=== PATIENT | female | born 1950 | race American Indian/Alaskan Native ===

== ENCOUNTER 2016-05-04 08:44 | Outpatient (CLI) | payer BC ==
[2016-05-04 09:31] LABS: Alanine Aminotransferase 16 units/L (7-56); Albumin 4.4 g/dL (3.9-5); Albumin/Globulin Ratio 1.4 %; Alkaline Phosphatase 64 units/L (35-129); Anion Gap 18 mmol/L; Bilirubin,Total 0.5 mg/dL (0.1-1.2); Blood Urea Nitrogen 23 mg/dL (7-17); Calcium 9.9 mg/dL (8.4-10.2); Carbon Dioxide 28 mmol/L (22-30); Cholesterol 194 mg/dL (50-199); Glucose 182 mg/dL (65-100); HDL Cholesterol 50 mg/dL (40-59); LDL Cholesterol,Direct 94 mg/dL (50-130); Potassium 3.5 mmol/L (3.6-5.0); Sodium 140 mmol/L (137-145); Total Protein 7.6 g/dL (6.3-8.2); Triglycerides 254 mg/dL (2-149)
== END 2016-05-04 08:45 | disposition home or self-care (01) ==
LOC: LAB 08:44
PROVIDERS: ATTEND Family Medicine
DX: E11.9 Type 2 diabetes mellitus without complications (principal)
CPT/HCPCS: 36415; 80053; 80061

== ENCOUNTER 2016-06-03 06:00 | Day surgery (SDC) | payer BC ==
[2016-06-03] MEDS ORDERED: NACL BACTERIOSTATIC INFILTRATI ONE (06:10)
--- NOTE | 2016-06-03 06:36 | Anesthesia Consultation ---
Anesthesia Consult and Med Hx Date of service: 06/03/16 - Airway Anesthetic Teeth Evaluation: Good ROM Head & Neck: Adequate Mental/Hyoid Distance: Adequate Mallampati Class: Class I Intubation Access Assessment: Good - Pulmonary Exam CTA: Yes - Cardiac Exam Cardiac Exam: RRR - Pre-Operative Health Status ASA Pre-Surgery Classification: ASA3 Proposed Anesthetic Plan: MAC - Cardiovascular System Hx Hypertension: Yes (Since 1985) Hx Heart Murmur: Yes - Central Nervous System Hx Neuromuscular Disorder: No Hx Psychiatric Problems: No - Gastrointestinal Hx Gastroesophageal Reflux Disease: No - Endocrine Hx Non-Insulin Dependent Diabetes: Yes Hx Thyroid Disease: No - Other Systems Hx Cancer: No
--- NOTE | 2016-06-03 06:36 | Anesthesia Day of Surgery ---
Anesthesia Day of Surgery - Day of Surgery Patient Examined: Yes Patient H&P Reviewed: Yes Patient is NPO: Yes
[2016-06-03] MEDS: NEOFRIN OS SCH ×4 (06:53→07:12)
[2016-06-03] MEDS: CYCLOGYL OS SCH ×4 (06:55→07:12)
[2016-06-03] MEDS: NEVANAC OS SCH ×4 (06:55→07:12)
[2016-06-03] MEDS: VIGAMOX OS SCH ×3 (06:56→07:17)
[2016-06-03] MEDS ORDERED: SUBLIMAZE ONE (07:06)
[2016-06-03] MEDS ORDERED: BSS OS ONE (07:27)
[2016-06-03] MEDS ORDERED: XYLOCAINE MPF 1% INFILTRATI ONE (07:29)
[2016-06-03] MEDS ORDERED: TETRACAINE 0.5% ONE (07:30)
[2016-06-03] MEDS ORDERED: BSS PLUS IO ONE (07:30)
[2016-06-03] MEDS ORDERED: DUOVISC VISCOELASTIC INTRAOCULA ONE (07:30)
[2016-06-03] MEDS ORDERED: ZOFRAN ONE (07:36)
[2016-06-03] MEDS ORDERED: TOBRADEX OS ONE ×2 (07:39→07:40)
[2016-06-03] MEDS ORDERED: WATER FOR IRRIG STERILE IR ONE (07:40)
[2016-06-03] MEDS ORDERED: VERSED ONE (08:00)
--- NOTE | 2016-06-03 08:50 | Operative Report ---
PREOPERATIVE DIAGNOSIS: Cataract, left eye. POSTOPERATIVE DIAGNOSIS: Cataract, left eye. PROCEDURE: . COMPLICATIONS: None. ANESTHESIA: MAC. DESCRIPTION OF PROCEDURE: After informed consent was obtained, the patient was brought to the operating room. Tetracaine eyedrops were placed in the eye. The patient was prepped and draped in the usual sterile fashion. A temporal clear corneal incision was made with a keratome blade. Viscoat was instilled in the anterior chamber. A capsulorrhexis capsulotomy was performed using Utrata forceps and a cystotome needle. Hydrodissection was applied in four quadrants using BSS on a 30-gauge cannula. The nucleus was then emulsified and removed using the phacoemulsification handpiece. Following removal of the nucleus, residual cortical material was irrigated and aspirated free. Following removal of the cortex, Provisc was instilled in the capsular bag. An Acrysoft SN60WF, 21.5 diopters was placed in the capsular bag. Then, the residual Viscoat was irrigated and aspirated free. The wound was checked to be tight without leakage. TobraDex ointment and Vigamox eyedrops were placed in the eye. The patient tolerated the procedure well. There were no operative complications. [facility]# [id number] CARRIE/SUSANNA
[2016-06-03 09:19] VITALS: BP 121/69
--- NOTE | 2016-06-03 09:19 | Discharge Summary ---
HOSPITAL COURSE: A 65-year-old black female admitted for cataract extraction with implant, left eye. The patient underwent uneventful uncomplicated surgery, now is being discharged home in stable condition. She is to be followed up in the office in the morning. She is to begin Pred Forte 4 times a day, Vigamox 4 times a day, once a day. ACTIVITY: As tolerated. JOB# [id number] CARRIE/SUSANNA
--- NOTE | 2016-06-03 14:58 | Post Anesthesia Evaluation ---
- Post Anesthesia Evaluation Patient Participated: Yes Airway Patent: Yes Stable Respiratory Function: Yes Nausea/Vomiting: No Temp > 96.8F: Yes Pain Manageable: Yes Adequeate Hydration: Yes Anesthesia Complications: No
--- NOTE | 2016-06-04 01:12 | Admit Criteria Form ---
Admission Criteria Documentation: AMBULATORY SURGERY EXCEPTION CRITERIA Ambulatory Surgery Exception Criteria ( Place 'X' for any and all applicable criteria): Surgery or procedure performed on ambulatory basis may require inpatient stay for[A] ANY ONE of the following(1)(2)(3)(4)(5)(6)(7)(8)(9): [X] I. A preoperative situation, condition, or finding that warrants inpatient stay as indicated by ANY ONE of the following: [] a) Inpatient care needed because of severity of a disease or condition rather than the surgery (eg, severe cardiac or respiratory disease, severe infection) (15) (16 ) (17) (18) [] b) Emergent procedure (eg, angioplasty for acute ischemia)(19) [] c) Complex surgical approach or situation as indicated by ANY ONE of the following(3): [] i) Open approach needed instead of usual endoscopic, transcatheter, or other less invasive procedure [] ii) Difficult approach because of previous operation [] iii) Airway monitoring required after open neck procedures(20)(21) [] iv) Large mass requiring unusually extensive dissection [] v) Additional complicating feature requiring inpatient care (eg, drain management)(22(23): [X] d) Major surgery in a pt with high anesthetic risk as indicated by ANY ONE of the following (2)(3)(5)(7)(8): [X] i) ASA risk class III or higher (severe systemic disease impairing function) [D] [] ii) Advanced age (eg, older than 85 years)(14)(24) [] iii) Symptomatic heart failure(25) [] iv) Symptomatic asthma or COPD(8)(21) [] v) Morbid obesity with hemodynamic or respiratory problems(20)( 21)(26)(27) [] vi) Obstructive sleep apnea(20)(21) [] vii) Former premature infants who are younger than 60 weeks [] viii) High risk for severe postoperative abnormalities (eg, severe postoperative hypocalcemia after parathyroidectomy for severe hyperparathyroidism)(27)( 28) [] ix) Unstable angina(25) [] e) Drug-related risk requiring inpatient stay as indicated by ANY ONE of the following(5)(10)(14)(32)(33) [] i) Procedure requires discontinuing drugs or other therapy (eg , antiarrhythmic medication, antiseizure medication), which necessitates inpatient observation or treatment.(18)(31) [] ii) Major surgery and high risk drug use as indicated by ANY ONE of the following: [] 1) Active abuse of cocaine or similar drug [] 2) Monoamine oxidase inhibitor use [] 3) Other drug identified as posing risk [] f) Inadequate outpatient care situation as indicated by ANY ONE of the following(5)(10)(14)(32)(33) [] i) Patient lives remote from medical facility and procedure has urgent complication potential, and temporary nearby residence cannot be arranged [] ii) Patient will have postprocedure incapacitation and inadequate assistance at home, or alternative level of care cannot be arranged. [] iii) Patient will have long general anesthesia or procedure side effect resolution time, and competent person to stay with patient on first postoperative night at home or alternative level of care cannot be arranged. []iv) Other inadequate outpatient situation that cannot be handled by other means [] II. A perioperative event, condition, or finding that warrants inpatient stay as indicated by ANY ONE of the following (1)(2)(3): [] a) Inadequate physiologic recovery: cardiovascular, respiratory, or hemodynamic status not normal or near preoperative baseline(18) [] b) Hemodynamic instability [] c) Patient not alert with near normal or baseline mental status [] d) Temperature not normal or as expected and not appropriate for outpatient treatment of condition [] e) Ambulatory or appropriate activity level status not yet achieved post procedure [E](34)(35)(36) [] f) Operative site not appropriate (eg, unexpected or excessive drainage or bleeding) [] g) Postoperative effects not resolved or adequately managed (eg, significant pain or vomiting not appropriate for outpatient or next level of care)(10)(12) [] h) Complicating features requiring inpatient care as indicated by ANY ONE of the following(37): [] i) Severe complications of procedure (eg, bowel injury, airway compromise, vascular injury,severe hemorrhage) [] ii) Extensive (eg, dissection far beyond usual scope of procedure ) or prolonged (eg, 120 minutes beyond usual) surgery needed requiring inpatient postoperative care [] iii) Conversion to an open or complex procedure that requires inpatient care (eg, open vs laparoscopic cholecystectomy, abdominal vs vaginal hysterectomy)(38) [] iv) Comorbid condition or test result identified during or post procedure that requires inpatient care (7) [] v) Malignant hyperthermia(30) [] vi) Other complicating feature requiring inpatient care(22)(23) Inpatient stay may be needed until ALL of the following are present (1)(2)(3)(4) (5)(6)(10)(14)(33)(40): []a) Physiologic recovery: cardiovascular, respiratory, and hemodynamic status normal or near preoperative baseline []b) Hemodynamic stability []c) Patient alert, with near normal or baseline mental status []d) Temperature appropriate: patient afebrile or temperature appropriate for outpt treatment of condition []e) Activity level appropriate: ambulatory or appropriate activity level post procedure []f) Operative site appropriate as indicated by ALL of the following: []i) Site dry or with expected drainage []ii) Any blood noted is as expected for procedure. []g) Postoperative effects resolved or managed as indicated by ALL of the following: []i) Pain management appropriate for outpatient (or next level of) care(10) []ii) Minimal nausea and vomiting: if present, successfully treated with oral medication(12) []iii) Headache, dizziness, or drowsiness (if present) are mild. []h) Voiding status acceptable as indicated by ANY ONE of the following: []i) Voiding spontaneously []ii) No voiding but instructions given for follow-up in 6 to 8 hours []iii) Urinary catheter in place, and instructions given for follow-up []i) Complicating features requiring inpatient care manageable at a lower level of care(37) []j) Comorbid conditions manageable at a lower level of care(37) The original [employer] content created by [employer] has been revised. The portions of the content which have been revised are identified through the use of italic text or in bold, and [email or web address] [employer] has neither reviewed nor approved the modified material. All other unmodified content is copyright [employer]. Please see references footnoted in the original [employer] edition 2016 Admission Criteria Met: Yes
[2016-06-05] MEDS ORDERED: CYCLOGYL OS ONE (06:24)
== END 2016-06-03 09:00 | disposition home or self-care (01) ==
LOC: OR 06:00
PROVIDERS: ATTEND Specialist
DX: E11.36 Type 2 diabetes mellitus with diabetic cataract (principal); I10 Essential (primary) hypertension; E11.40 Type 2 diabetes mellitus with diabetic neuropathy, unspecified; E78.2 Mixed hyperlipidemia; Z82.49 Family history of ischemic heart disease and other diseases of the circulatory system; Z83.3 Family history of diabetes mellitus; Z81.8 Family history of other mental and behavioral disorders; Z79.84 Long term (current) use of oral hypoglycemic drugs; Z79.899 Other long term (current) drug therapy
CPT/HCPCS: 66984; 82962; J2250; J2405; J3010; V2632

== ENCOUNTER 2016-07-09 12:16 | Outpatient (CLI) | payer BC ==
--- NOTE | 2016-07-10 08:13 | Mammography Report ---
BILATERAL DIGITAL SCREENING MAMMOGRAM with CAD: 07/09/16 12:16:00 CLINICAL: Routine screening. COMPARISON:01/28/15 FINDINGS: The breasts are heterogeneously dense, which may obscure small masses. No mass, architectural distortion or suspicious calcifications. IMPRESSION: No mammographic evidence of malignancy. BI-RADS CATEGORY: 1 - - Negative RECOMMENDATION: Routine mammographic screening in one year. COMMENT: Patient follow-up letters are generated by our [employer] application.
== END 2016-07-09 12:17 | disposition home or self-care (01) ==
LOC: MAMMO 12:16
PROVIDERS: ATTEND Family Medicine
DX: Z12.31 Encounter for screening mammogram for malignant neoplasm of breast (principal)
CPT/HCPCS: 77067; G0202

== ENCOUNTER 2016-08-10 04:02 | Emergency (ER) | payer BC ==
--- NOTE | 2016-08-10 07:34 | XRay Report ---
ROUTINE CHEST, TWO VIEWS: HISTORY: Chest pain with cough. The trachea, heart, mediastinal contour, lung perla and bony thorax are unremarkable. IMPRESSION: Unremarkable chest x-ray.
[2016-08-10] MEDS ORDERED: ZITHROMAX PO ONE (08:54)
[2016-08-10 08:57] VITALS: BP 153/88
--- NOTE | 2016-08-10 09:03 | Emergency Department Report ---
- General Chief Complaint: Upper Respiratory Infection Stated Complaint: COUGH/WHEEZING Time Seen by Provider: 08/10/16 08:49 Source: patient Mode of arrival: Ambulatory Limitations: No Limitations - History of Present Illness Initial Comments: 66-year-old female past medical history diabetes hypertension presents with complaint of 3-4 days of slightly productive cough. Patient complaining of mild sore throat. Denies any nausea no vomiting denies any chest pain. Patient works as a nurse in surgery unit. Patient is awake alert and oriented 3 speaking in full sentences no audible wheezing or stridor. MD Complaint: cough Onset/Timin -: days(s) Severity: moderate Improves With: OTC cold medicine Worsens With: nothing Context: sick contacts, recent dental work Associated Symptoms: sore throat, cough - Related Data Home Medications Medication Instructions Recorded Confirmed Last Taken Losartan/Hydrochlorothiazide 80.25 mg PO QDAY 01/24/15 06/03/16 06/02/16 09:00 [Hyzaar 100-25 TAB] metFORMIN [Glucophage] 1,000 mg PO BID 01/24/15 06/03/16 06/02/16 19:00 glipiZIDE [Glipizide] 5 mg PO BID 05/26/16 06/03/16 06/02/16 19:00 Previous Rx's Medication Instructions Recorded Last Taken Type ALBUTEROL Inhaler [ProAir HFA 2 puff IH QID PRN #1 inhalation 08/10/16 Unknown Rx Inhaler] Azithromycin [Zithromax TAB] 250 mg PO QDAY #4 tablet 08/10/16 Unknown Rx Naproxen [Naproxen TAB] 250 mg PO BID PRN #20 tablet 08/10/16 Unknown Rx guaiFENesin/DEXTROMETHORPHAN 10 ml PO Q4H PRN #1 bottle 08/10/16 Unknown Rx [Diabetic Tussin Dm Max-Str Liq] Allergies Allergy/AdvReac Type Severity Reaction Status Date / Time flu vaccine AdvReac GUILLIAN Uncoded 05/26/16 14:08 [facility] ED Review of Systems ROS: Stated complaint: COUGH/WHEEZING Other details as noted in HPI Constitutional: denies: chills, fever Eyes: denies: eye pain, eye discharge, vision change ENT: throat pain. denies: ear pain Respiratory: cough. denies: shortness of breath, wheezing Cardiovascular: denies: chest pain, palpitations Endocrine: no symptoms reported Gastrointestinal: denies: abdominal pain, nausea, diarrhea Genitourinary: denies: urgency, dysuria, discharge Musculoskeletal: denies: back pain, joint swelling, arthralgia Skin: denies: rash, lesions Neurological: denies: headache, weakness, paresthesias Psychiatric: denies: anxiety, depression Hematological/Lymphatic: denies: easy bleeding, easy bruising ED Past Medical Hx - Past Medical History Previous Medical History?: Yes Hx Hypertension: Yes (Since 1985) Hx Diabetes: Yes (since 1993) - Surgical History Past Surgical History?: Yes Additional Surgical History: cataracts. wisdom tooth. hyster. adhensions removed. begein tumor removed. - Social History Smoking Status: Never Smoker - Medications Home Medications: Home Medications Medication Instructions Recorded Confirmed Last Taken Type Losartan/Hydrochlorothiazide 80.25 mg PO QDAY 01/24/15 06/03/16 06/02/16 09:00 History [Hyzaar 100-25 TAB] metFORMIN [Glucophage] 1,000 mg PO BID 01/24/15 06/03/16 06/02/16 19:00 History glipiZIDE [Glipizide] 5 mg PO BID 05/26/16 06/03/16 06/02/16 19:00 History ALBUTEROL Inhaler [ProAir HFA 2 puff IH QID PRN #1 inhalation 08/10/16 Unknown Rx Inhaler] Azithromycin [Zithromax TAB] 250 mg PO QDAY #4 tablet 08/10/16 Unknown Rx Naproxen [Naproxen TAB] 250 mg PO BID PRN #20 tablet 08/10/16 Unknown Rx guaiFENesin/DEXTROMETHORPHAN 10 ml PO Q4H PRN #1 bottle 08/10/16 Unknown Rx [Diabetic Tussin Dm Max-Str Liq] ED Physical Exam - General Limitations: No Limitations General appearance: alert, in no apparent distress - Head Head exam: Present: atraumatic, normocephalic - Eye Eye exam: Present: normal appearance, PERRL, EOMI - ENT ENT exam: Present: mucous membranes moist - Expanded ENT Exam Expanded Throat exam: Positive: normal inspection - Neck Neck exam: Present: normal inspection, full ROM - Respiratory Respiratory exam: Present: normal lung sounds bilaterally (slighlyt coarse breath sounds right lung field no rhonchi) - Cardiovascular Cardiovascular Exam: Present: regular rate, normal rhythm. Absent: systolic murmur, diastolic murmur, rubs, gallop - GI/Abdominal GI/Abdominal exam: Present: soft, normal bowel sounds - Extremities Exam Extremities exam: Present: normal inspection - Back Exam Back exam: Present: normal inspection - Neurological Exam Neurological exam: Present: alert, oriented X3 - Psychiatric Psychiatric exam: Present: normal affect, normal mood - Skin Skin exam: Present: warm, dry, intact, normal color. Absent: rash ED Course Vital Signs 08/10/16 08/10/16 04:07 08:56 Temperature 99.3 F Pulse Rate 80 73 Respiratory 18 18 Rate Blood Pressure 172/101 Blood Pressure 153/88 [Left] O2 Sat by Pulse 99 99 Oximetry ED Medical Decision Making - Medical Decision Making A/P: Acute bronchitis 1-azithromycin, albuterol, diabetic Robitussin, naproxen 2-follow-up with primary care doctor 3-I will cover patient empirically as she works as a nurse in the hospital, chest x-ray within normal limits 4-I advised patient to return to the ED if she experiences chest pain fevers chills nausea vomiting and inability to tolerate by mouth or worsening cough 5- patient states she can follow-up with her primary care doctor this week Critical care attestation.: If time is entered above; I have spent that time in minutes in the direct care of this critically ill patient, excluding procedure time. ED Disposition Clinical Impression: Acute bronchitis Qualifiers: Bronchitis organism: unspecified organism Qualified Code(s): J20.9 - Acute bronchitis, unspecified Disposition: DISCHARGED TO HOME OR SELFCARE Is pt being admited?: No Does the pt Need Aspirin: No Condition: Stable Instructions: Acute Bronchitis (ED) Prescriptions: ALBUTEROL Inhaler [ProAir HFA Inhaler] 2 puff IH QID PRN #1 inhalation PRN Reason: Shortness Of Breath Azithromycin [Zithromax TAB] 250 mg PO QDAY #4 tablet guaiFENesin/DEXTROMETHORPHAN [Diabetic Tussin Dm Max-Str Liq] 10 ml PO Q4H PRN # 1 bottle PRN Reason: Cough Naproxen [Naproxen TAB] 250 mg PO BID PRN #20 tablet PRN Reason: Cough Referrals: SHIRA ROSA MD [Staff Physician] - 3-5 Days Forms: Work/School Release Form(ED) Time of Disposition: 09:07
== END 2016-08-10 09:15 | disposition home or self-care (01) ==
LOC: ED 04:02
DX: J20.9 Acute bronchitis, unspecified (principal); I10 Essential (primary) hypertension; E11.9 Type 2 diabetes mellitus without complications; Z88.7 Allergy status to serum and vaccine
CPT/HCPCS: 71020

== ENCOUNTER 2017-01-25 08:49 | Outpatient (CLI) | payer BC ==
[2017-01-25 09:34] LABS: Alanine Aminotransferase 16 units/L (7-56); Albumin 4.3 g/dL (3.9-5); Albumin/Globulin Ratio 1.4 %; Alkaline Phosphatase 65 units/L (35-129); Anion Gap 17 mmol/L; BUN/Creatinine Ratio 28; Blood Urea Nitrogen 33 mg/dL (7-17); Calcium 10.1 mg/dL (8.4-10.2); Carbon Dioxide 29 mmol/L (22-30); Chloride 97.4 mmol/L (98-107); Cholesterol 196 mg/dL (50-199); Glucose 209 mg/dL (65-100); HDL Cholesterol 44 mg/dL (40-59); LDL Cholesterol,Direct TNR mg/dL (50-130); Potassium 4.2 mmol/L (3.6-5.0); Sodium 139 mmol/L (137-145); Total Protein 7.3 g/dL (6.3-8.2); Triglycerides 481 mg/dL (2-149)
== END 2017-01-25 08:50 | disposition home or self-care (01) ==
LOC: LAB 08:49
PROVIDERS: ATTEND Family Medicine
DX: E11.9 Type 2 diabetes mellitus without complications (principal)
CPT/HCPCS: 36415; 80053; 80061; 82043; 83036

== ENCOUNTER 2017-04-15 08:49 | Outpatient (CLI) | payer BC ==
--- NOTE | 2017-04-15 11:56 | Treadmill Report ---
INDICATION FOR PROCEDURE: Abnormal EKG. Informed consent was obtained. The baseline electrocardiogram demonstrates normal sinus rhythm with poor R-wave progression in the anterior precordial leads. The baseline heart rate is 66 beats per minute with a blood pressure of 141/78. The patient exercised according to the Blayne protocol for 7 minutes achieving a peak heart rate of 132 and maximum blood pressure of 169/78. The patient achieved 86% of the maximum predicted heart rate response and attained a workload of 8.3 mets. The patient did not report any chest pain or shortness of breath. Exercise was limited by her feet burning. The electrocardiographic response to treadmill exercise demonstrates [address] segment depression in the lateral precordial leads at peak exercise. During the recovery phase, nonspecific repolarization abnormalities persist. There was no significant ectopy. The exercise test is clinically nonischemic, but electrocardiographically suspicious for myocardial ischemia. The patient exhibited fair to normal exercise tolerance. If clinically warranted, further evaluation with another imaging modality such as stress myocardial perfusion may be appropriate. [facility]# [id number] DINA/SUSANNA
== END 2017-04-15 08:50 | disposition home or self-care (01) ==
LOC: ECHO 08:49
PROVIDERS: ATTEND Internal Medicine Cardiovascular Disease
DX: I10 Essential (primary) hypertension (principal); R94.31 Abnormal electrocardiogram [ECG] [EKG]
CPT/HCPCS: 93017; 93306

== ENCOUNTER 2017-05-20 07:57 | Outpatient (CLI) | payer BC ==
[2017-05-20] MEDS ORDERED: LEXISCAN IV ONE ×2 (09:06)
[2017-05-20 13:54] VITALS: BP 124/75
== END 2017-05-20 07:58 | disposition home or self-care (01) ==
LOC: CARD 07:57
PROVIDERS: ATTEND Internal Medicine Cardiovascular Disease
DX: Z01.810 Encounter for preprocedural cardiovascular examination (principal); I10 Essential (primary) hypertension; R94.30 Abnormal result of cardiovascular function study, unspecified
CPT/HCPCS: 78452; 93017; A9502; J2785

== ENCOUNTER 2017-10-05 07:37 | Outpatient (CLI) | payer BC ==
[2017-10-05 08:03] LABS: Hematocrit 37.3 % (30.3-42.9); Hemoglobin 12.5 gm/dl (10.1-14.3); Mean Corpuscular HGB Conc 33 % (30-34); Mean Corpuscular Hemoglobin 30 pg (28-32); Mean Corpuscular Volume 90 fl (79-97); Platelet Count 275 K/mm3 (140-440); Red Blood Count 4.17 M/mm3 (3.65-5.03); Red Cell Distribution Width 13.5 % (13.2-15.2)
[2017-10-05 09:42] LABS: Albumin 4.3 g/dL (3.9-5); Calcium 10.3 mg/dL (8.4-10.2); Chol/HDL Ratio 3.46 %
[2017-10-06 20:20] LABS: Creatinine,Urine 184.8 mg/dL (0.1-20.0)
== END 2017-10-05 07:38 | disposition home or self-care (01) ==
LOC: LAB 07:37
DX: E11.42 Type 2 diabetes mellitus with diabetic polyneuropathy (principal); I10 Essential (primary) hypertension; E78.1 Pure hyperglyceridemia; K66.0 Peritoneal adhesions (postprocedural) (postinfection); E78.00 Pure hypercholesterolemia, unspecified; E11.9 Type 2 diabetes mellitus without complications; E07.9 Disorder of thyroid, unspecified
CPT/HCPCS: 36415; 80053; 80061; 82043; 83036; 85027

== ENCOUNTER 2017-12-14 07:06 | Day surgery (SDC) | payer BC ==
[2017-12-14] MEDS ORDERED: WATER FOR IRRIG STERILE IR ONE (07:40)
[2017-12-14] MEDS ORDERED: WATER FOR IRRIG STERILE ONE (07:40)
[2017-12-14] MEDS ORDERED: DIPRIVAN 10 MG/ML IV ONE ×2 (07:52)
[2017-12-14] MEDS ORDERED: VERSED ONE (07:52)
--- NOTE | 2017-12-14 07:55 | Anesthesia Consultation ---
Anesthesia Consult and Med Hx - Airway Anesthetic Teeth Evaluation: Good ROM Head & Neck: Adequate Mental/Hyoid Distance: Adequate Mallampati Class: Class III Intubation Access Assessment: Probably Good - Pulmonary Exam CTA: Yes - Pre-Operative Health Status ASA Pre-Surgery Classification: ASA3 Proposed Anesthetic Plan: MAC - Cardiovascular System Hx Hypertension: Yes Hx Heart Murmur: Yes - Central Nervous System Hx Neuromuscular Disorder: No Hx Psychiatric Problems: No - Gastrointestinal Hx Gastroesophageal Reflux Disease: No - Endocrine Hx Non-Insulin Dependent Diabetes: Yes Hx Thyroid Disease: No - Other Systems Hx Cancer: No
--- NOTE | 2017-12-14 07:55 | Anesthesia Day of Surgery ---
Anesthesia Day of Surgery - Day of Surgery Patient Examined: Yes Patient H&P Reviewed: Yes Patient is NPO: Yes Beta Blockers: No
[2017-12-14] MEDS ORDERED: NACL 0.9% 1000 ML 1,000 ML IV SCH (08:00)
[2017-12-14] MEDS ORDERED: XYLOCAINE 2% INFILTRATI ONE (08:32)
--- NOTE | 2017-12-14 09:08 | Short Stay Summary ---
Short Stay Documentation Date of service: 12/14/17 Narrative H&P: The patient presents for routine colon screening. Last study was 12 years ago and was normal. - History Past Medical History: diabetes, hyperthyroidism, hypertension, hyperlipidemia Past Surgical History: appendectomy, hysterectomy, hernia repair, tonsillectomy Social history: no significant social history, , lives with family, no smoking, no alcohol abuse - Allergies and Medications Current Medications: Allergies flu vaccine Adverse Reaction (Severe, Uncoded 05/20/17 09:06) GUILLIAN [facility] [employer] Home Medications Medication Instructions Recorded Confirmed Last Taken Type Losartan/Hydrochlorothiazide 100 mg PO QDAY 01/24/15 12/08/17 06/02/16 09:00 History [Hyzaar 100-25 TAB] metFORMIN [Glucophage] 1,000 mg PO BID 01/24/15 12/08/17 06/02/16 19:00 History ALBUTEROL Inhaler (OR & NICU) 2 puff IH QID PRN #1 inhalation 08/10/16 12/08/17 Unknown Rx [ProAir HFA Inhaler] Naproxen [Naproxen TAB] 250 mg PO BID PRN #20 tablet 08/10/16 12/08/17 Unknown Rx Coq-10 1 tab PO DAILY 12/08/17 12/08/17 Unknown History Januvia 100 mg PO DAILY 12/08/17 12/08/17 Unknown History Multiple Vitamins 1 tab PO DAILY 12/08/17 12/08/17 Unknown History Tricor 145 mg PO DAILY 12/08/17 12/08/17 Unknown History Vitamin B-12 1 tab PO DAILY 12/08/17 12/08/17 Unknown History Vitamin D3 1 tab PO DAILY 12/08/17 12/08/17 Unknown History Active Medications Sodium Chloride (Nacl 0.9% 1000 Ml) 1,000 mls @ 50 mls/hr IV DIRECT DANIELLE Last Admin: 12/14/17 07:45 Dose: 50 mls/hr - Physical exam General appearance: no acute distress, well-nourished Integumentary: no rash, no growths, no abnormal pigmentation HEENT: Atraumatic, PERRLA, EOMI, Mucous membr. moist/pink Lungs: Clear to auscultation, Normal air movement Breasts: deferred Heart: Regular rate, Normal S1, Normal S2, No murmurs Gastrointestinal: normoactive bowel sounds, no tenderness, no distended, no masses, no hepatomegaly, no splenomegaly Female Genitourinary: deferred Rectal Exam: normal exam-external/orifice, normal rectal tone, no mass Extremities: no ischemia, pulses intact, pulses symmetrical, No edema, Full ROM Neurological: Normal gait, Normal speech, Strength at 5/5 X4 ext, Normal tone, Sensation intact, Cranial nerves 3-12 NL - Brief post op/procedure progress note Date of procedure: 12/14/17 Procedure: see dictated report Estimated blood loss: none Pathology: list (hepatic flexure polyp) Specimen disposition: to lab Condition: stable - Disposition Condition at discharge: Good Disposition: DC-01 TO HOME OR SELFCARE - Discharge Diagnoses (1) Screening for colon cancer Status: Acute Short Stay Discharge Plan Follow up with: GEOFFREY ABURTO MD [Primary Care Provider] - 7 Days
--- NOTE | 2017-12-14 09:12 | Operative Report ---
Operative Report Operative Report: Date of procedure: 12/14/2017 Preprocedure diagnosis: Cancer screening, normal study last done 12 years ago. Post procedure diagnosis: 6 mm sessile hepatic flexure polyp Procedure: Colonoscopy to the cecum with cold snare polypectomy Endoscopist: Dr. Crump Anesthesia: Monitored anesthesia care per anesthesia department Estimated blood loss: 0 Medications: Monitored anesthesia care. See separate report by anesthesia for details. After careful discussion of the nature and purpose of the procedure as well as details of the technique risks benefits and alternatives the patient gave consent. Please see recent history and physical from the office. The patient was placed in the left lateral decubitus position and medicated per anesthesia. A rectal exam was performed sphincter tone was normal there were no masses palpable. The [employer] 570 scope was passed transanally and advanced under continuous direct vision without difficulty to the cecum. The colon was well prepared. The cecum was normal. The ascending colon was normal and on forward and retroflexed views. There was a 6 mm sessile polyp in the hepatic flexure. The polyp was removed with cold snare resection and retrieved by suction. The transverse colon, descending colon, and sigmoid colon were normal. The rectum was normal on forward and retroflexed views. The procedure was well-tolerated overall and the patient was observed in recovery. Conclusions: 5 millimeter hepatic flexure polyp, otherwise normal colonoscopy to the cecum. Plan: Await pathology. Follow-up colonoscopy in 5 years. Signed electronically: Zelalem Crump M.D.
[2017-12-14 12:59] VITALS: BP 120/58
== END 2017-12-14 07:07 | disposition home or self-care (01) ==
LOC: GIO 07:06
PROVIDERS: ATTEND Internal Medicine Gastroenterology
DX: Z12.11 Encounter for screening for malignant neoplasm of colon (principal); E78.00 Pure hypercholesterolemia, unspecified; I10 Essential (primary) hypertension; K63.5 Polyp of colon; Z90.49 Acquired absence of other specified parts of digestive tract; Z98.42 Cataract extraction status, left eye; Z98.890 Other specified postprocedural states
CPT/HCPCS: 45385; 88305; J2250; J2704; J7030

== ENCOUNTER 2019-02-06 07:40 | Outpatient (CLI) | payer BC ==
[2019-02-06 08:18] LABS: Albumin 4.6 g/dL (3.9-5); Chol/HDL Ratio 3.74 %
== END 2019-02-06 07:41 | disposition home or self-care (01) ==
LOC: LAB 07:40
PROVIDERS: ATTEND Internal Medicine
DX: I10 Essential (primary) hypertension (principal); E13.9 Other specified diabetes mellitus without complications; E78.00 Pure hypercholesterolemia, unspecified; Z90.49 Acquired absence of other specified parts of digestive tract; Z90.710 Acquired absence of both cervix and uterus
CPT/HCPCS: 36415; 80053; 80061

== ENCOUNTER 2019-05-22 08:20 | Outpatient (CLI) | payer BC ==
[2019-05-22 08:45] LABS: Basophils # (Auto) 0.1 K/mm3 (0.0-0.1); Basophils % (Auto) 0.9 % (0.0-1.8); Eosinophils # (Auto) 0.2 K/mm3 (0.0-0.4); Eosinophils % (Auto) 2.4 % (0.0-4.3); Hematocrit 36.4 % (30.3-42.9); Hemoglobin 12.4 gm/dl (10.1-14.3); Lymphocytes # (Auto) 1.6 K/mm3 (1.2-5.4); Lymphocytes % (Auto) 25.4 % (13.4-35.0); Mean Corpuscular HGB Conc 34 % (30-34); Mean Corpuscular Volume 91 fl (79-97); Monocytes # (Auto) 0.6 K/mm3 (0.0-0.8); Monocytes % (Auto) 10.1 % (0.0-7.3); Platelet Count 262 K/mm3 (140-440); Red Blood Count 4.01 M/mm3 (3.65-5.03)
[2019-05-22 09:08] LABS: Albumin 4.6 g/dL (3.9-5); Calcium 10.8 mg/dL (8.4-10.2)
[2019-05-22 09:09] LABS: Chol/HDL Ratio 3.06 %
== END 2019-05-22 08:21 | disposition home or self-care (01) ==
LOC: LAB 08:20
PROVIDERS: ATTEND Internal Medicine
DX: I10 Essential (primary) hypertension (principal); E13.9 Other specified diabetes mellitus without complications
CPT/HCPCS: 36415; 80053; 80061; 84443; 85025

== ENCOUNTER 2020-03-05 08:57 | Outpatient (CLI) | payer BC ==
--- NOTE | 2020-03-05 11:04 | Mammography Report ---
DIGITAL SCREENING MAMMOGRAM WITH CAD, 03/05/2020 CLINICAL INFORMATION / INDICATION: Routine screening mammography. TECHNIQUE: Digital bilateral 2D mammography was obtained in the craniocaudal and mediolateral obliqu e projections. This examination was interpreted with the benefit of Computer-Aided Detection analysis . COMPARISON: 07/09/2016, 01/28/2015 FINDINGS: Breast Density: The breasts are heterogeneously dense, which may obscure small masses. No dominant mass, suspicious calcifications, or architectural distortion in either breast. IMPRESSION: No mammographic evidence of malignancy. Follow up recommendation: Routine yearly BI-RADS Category 1: Negative. A "normal" or negative report should not discourage follow up or biopsy of a clinically significant f inding. A written summary of these findings will be mailed to the patient. The patient will be entered into a mammography reporting system which will generate a reminder letter for the patient's next appointmen t at the appropriate interval. The [employer] recommends yearly mammograms starting at age 40 and continuing as l steffen as a woman is in good health. Breast MRI is recommended for women with an approximate 20-25% or greater lifetime risk of breast cancer, including women with a strong family history of breast or ova karen cancer or who have been treated for Hodgkin's disease. Signer Name: Eduardo Matias MD Signed: 03/05/2020 10:59 AM Workstation Name: [id number]
--- NOTE | 2020-03-06 07:11 | Mammography Report ---
DEXA BONE DENSITY SCAN INDICATION / CLINICAL INFORMATION: SCREENING OSTEO. 69 years Female COMPARISON: None available. LUMBAR SPINE (L1-L4): - Bone mineral density (BMD) = 1.080 g/cm2. - T-score = 0.3 - Z-score = 1.7 Change (%) since most recent prior (if available): None available. FEMORAL NECKS: - Left femoral neck Bone mineral density (BMD) = 0.863 g/cm2. - T-score = 0.1 - Z-score = 0.8 Change (%) since most recent prior (if available): None available. IMPRESSION: 1. WHO Classification: Normal bone density. Fracture Risk: Not Increased. BMD Reporting Guidelines (ISCD, 2015) BMD Reporting in Postmenopausal Women and in Men Age 50 and Older * T-scores are preferred. * The WHO densitometric classification is applicable. BMD Reporting in Females Prior to Menopause and in Males Younger Than Age 50 * Z-scores, not T-scores, are preferred. This is particularly important in children. * A Z-score of -2.0 or lower is defined as below the expected range for age, and a Z-score above -2. 0 is within the expected range for age. * Osteoporosis cannot be diagnosed in men under age 50 on the basis of BMD alone. * The WHO diagnostic criteria may be applied to women in the menopausal transition. http://www.iscd.org/official-positions/8912-bsmo-ivuxrxmk-positions-adult/ Signer Name: Kj Canada MD Signed: 03/06/2020 7:06 AM Workstation Name: [id number]
== END 2020-03-05 08:58 | disposition home or self-care (01) ==
LOC: MAMMO 08:57
PROVIDERS: ATTEND Obstetrics & Gynecology
DX: Z12.31 Encounter for screening mammogram for malignant neoplasm of breast (principal); Z13.820 Encounter for screening for osteoporosis
CPT/HCPCS: 77067; 77080